=== PATIENT | female | born 1985 | race Caucasian/White ===

== ENCOUNTER 2016-07-31 20:13 | Inpatient (IN) | payer OTHER ==
[~2016-07-31] VITALS: Ht 170.2 cm; Wt 67.3 kg
[~2016-07-31 20:13] MED LIST: BCP TD; GENTLE EXPRESSI1 CRE; MOTRIN 800800 MG/TAB PO; NORCO 325 MG-51 TAB PO; PERCOCET 325 MG1 TA2 PO; PHENERGAN 25 TA25 MG PO; PHENERGAN25 MG RC; PRENATAL1 TA1 PO; SENOKOT S 50 MG1 TAB PO
[2016-07-31 20:51] VITALS: BP 103/64; PULSE 89; TEMP 97.6
[2016-08-01] VITALS (41 sets, daily range): BP systolic 80–122; BP diastolic 50–75; PULSE 72–113; TEMP 98–98.5
[2016-08-01 00:38] LABS: BASO # 0.1 (0.0-0.2); BASO % 0.5 % (0.0-2.0); EOS # 0.2 (0.0-0.7); EOS % 1.1 % (0-4.0); GRAN # 13.4 (1.4-6.5); GRAN % 73.6 % (42.2-75.2); HEMATOCRIT 39.5 % (37.0-47.0); HEMOGLOBIN 14.1 g/dl (12.5-16.0); LYMPH # 3.3 (1.2-3.4); LYMPH % 17.9 % (20.0-51.0); MEAN CELL VOLUME 96 fl (80.0-100.0); MEAN CORPUSCULAR HEMOGLOBIN 34 pg (27.0-31.0); MEAN CORPUSCULAR HGB CONC 36 g/dl (33.0-37.0); MEAN PLATELET VOLUME 11.7 fl (7.4-10.4); MONO # 1.1 (0.1-0.6); MONO % 6.2 % (1.7-9.3); PLATELET COUNT 313 K/mm3 (130-400); REDCELL DISTRIBUTION WIDTH-CV 12.8 % (11.5-14.5); WHITE BLOOD COUNT 18.2 K/mm3 (4.8-10.8)
[2016-08-02 00:15] VITALS: BP 92/59; PULSE 87; TEMP 97.7
[2016-08-02 07:50] VITALS: BP 100/61; PULSE 74; TEMP 98.1
[2016-08-02] MEDS ORDERED: IBU800 M1 PO (08:34)
== END 2016-08-02 10:35 | disposition home or self-care (01) | DRG 775 ==
LOC: LDRO 20:13 → LDR 23:55 → OB 23:55
PROVIDERS: Obstetrics & Gynecology
PROC: 10E0XZZ Delivery of Products of Conception, External Approach (ICD-10-PCS; principal; 2016-08-01)
PROC: 0HQ9XZZ Repair Perineum Skin, External Approach (ICD-10-PCS; 2016-08-01)
DX: O77.0 Labor and delivery complicated by meconium in amniotic fluid (principal); O70.0 First degree perineal laceration during delivery; Z3A.39 39 weeks gestation of pregnancy; Z37.0 Single live birth
CPT/HCPCS: J2405; J2590; J7120

== ENCOUNTER → 2016-09-25 | Outpatient (CLI) | payer OTHER ==
[~2016-09-25] MED LIST changes: +IBU800 M1 PO; +MULTI VITAMINS1 TAB PO
== END ==
LOC: COL.RAD 10:30
DX: K40.90 Unilateral inguinal hernia, without obstruction or gangrene, not specified as recurrent (principal)

== ENCOUNTER 2016-10-24 08:09 | Day surgery (SDC) | payer OTHER ==
[2016-10-24] VITALS (7 sets, daily range): BP systolic 95–107; BP diastolic 61–74; PULSE 67–87; TEMP 97.6–97.9
[~2016-10-24] VITALS: Ht 170.2 cm; Wt 55.8 kg
[~2016-10-24 08:09] MED LIST changes: -MULTI VITAMINS1 TAB PO
[2016-10-24] MEDS ORDERED: MULTI VITAMINS1 TAB PO (09:59)
[2016-10-24] MEDS ORDERED: NORCO 325 MG-51 TAB PO (15:40)
== END 2016-10-24 15:45 | disposition home or self-care (01) ==
LOC: SDCO 08:09
DX: D22.5 Melanocytic nevi of trunk (principal); D22.72 Melanocytic nevi of left lower limb, including hip; K40.90 Unilateral inguinal hernia, without obstruction or gangrene, not specified as recurrent; Z80.41 Family history of malignant neoplasm of ovary; Z15.02 Genetic susceptibility to malignant neoplasm of ovary; Z80.3 Family history of malignant neoplasm of breast; Z30.09 Encounter for other general counseling and advice on contraception
CPT/HCPCS: A4315; C1781; J0690; J1100; J1885; J2250; J2405; J2550; J2704; J2710; J3010; J7120

== ENCOUNTER 2017-03-14 11:16 | Outpatient (RCR) | payer OTHER ==
[~2017-03-14 11:16] MED LIST changes: +MULTI VITAMINS1 TAB PO
== END 2017-04-08 13:31 | disposition home or self-care (01) ==
LOC: WSOH 11:16
DX: S61.210A Laceration without foreign body of right index finger without damage to nail, initial encounter (principal); W26.8XXA Contact with other sharp object(s), not elsewhere classified, initial encounter; Y92.219 Unspecified school as the place of occurrence of the external cause; Y99.0 Civilian activity done for income or pay

== ENCOUNTER → 2020-11-16 | Outpatient (CLI) | payer BC | LOC: MC.RAD 11-09 09:15 | DX: N63.11 Unspecified lump in the right breast, upper outer quadrant (principal) ==